=== PATIENT | female | born 2000 | race Caucasian/White ===

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

== ENCOUNTER 2019-01-01 16:45 | Outpatient (CLI) | payer OTHER ==
[2014-03-08 07:17] VITALS: BP 138/72
== END 2019-01-01 16:47 ==
LOC: LAB 16:45
PROVIDERS: ATTEND Family Medicine
DX: R63.4 Abnormal weight loss (principal)
CPT/HCPCS: 36415; 84439; 84443